=== PATIENT | female | born 1985 | race Caucasian/White ===

== ENCOUNTER 2016-07-20 13:18 | Emergency (ER) | payer BC, MEDICAID ==
[2016-07-20 13:19] VITALS: BMI 22.4
[2016-07-20 13:31] VITALS: RESP 20; TEMP 98.2
[2016-07-20] MEDS ORDERED: Sodium Chloride 0.9% 1,000 ML IV ONE (14:29)
[2016-07-20] MEDS ORDERED: Aluminum Hydroxide/Magnesium Hydroxide Susp (30 mL) PO STA (14:31)
[2016-07-20 14:47] LABS: RBC URINE < 1 /hpf (0-3); URINE BILIRUBIN NEGATIVE (NEGATIVE); URINE BLOOD 1+ (NEGATIVE); URINE COLOR Straw (YELLOW); URINE GLUCOSE (UA) NORMAL (Normal); URINE KETONE NEGATIVE (NEGATIVE); URINE LEUKOCYTE ESTERASE NEG Leu/uL (Negative); URINE PROTEIN NEGATIVE (NEGATIVE); URINE UROBILINOGEN NORMAL mg/dL (0.2-1.0)
[2016-07-20] MEDS ORDERED: Aluminum Hydroxide/Magnesium Hydroxide Susp (30 mL) ONE (14:49)
[2016-07-20 14:51] LABS: BASO % 0.1 % (0.0-2.0); HEMATOCRIT 39.2 % (34.0-47.0); LYMPH # 0.2 K/uL (1.0-4.3); MEAN CORPUSCULAR HEMOGLOBIN 25.2 pg (27.0-31.0); MEAN CORPUSCULAR HGB CONC 31.9 g/dL (33.0-37.0); MEAN PLATELET VOLUME 8.9 fL (7.2-11.7); MONO # 0.1 K/uL (0.0-0.8); MONO % 1.6 % (0.0-10.0); PLATELET COUNT 317 K/uL (130-400); RED CELL DISTRIBUTION WIDTH 15.7 % (11.5-14.5); WHITE BLOOD COUNT 5.5 K/uL (4.8-10.8)
[2016-07-20 14:53] LABS: CHLORIDE 105 mmol/L (98-107); POTASSIUM 3.4 mmol/L (3.6-5.2); SODIUM 141 mmol/L (132-148)
[2016-07-20 14:55] LABS: BILIRUBIN,TOTAL 0.4 mg/dL (0.2-1.3); GFR AFRICAN-AMERICAN > 60
[2016-07-20 14:56] LABS: ALB/GLOB RATIO 1.2 (1.0-2.1); ALKALINE PHOSPHATASE 93 U/L (38-126); ALT/SGPT 23 U/L (9-52); AST/SGOT 24 U/L (14-36); BLOOD UREA NITROGEN 7 mg/dL (7-17); CARBON DIOXIDE 20 mmol/L (22-30); GLUCOSE,RANDOM 135 mg/dL (65-105); TOTAL PROTEIN 8.3 g/dL (6.3-8.3)
[2016-07-20 14:57] LABS: CALCIUM 9.2 mg/dl (8.6-10.4)
[2016-07-20 15:14] LABS: NEUTROPHIL 94 % (50-75); TOTAL CELLS COUNTED 100
--- NOTE | 2016-07-20 15:20 | C.PDOC ---
History Of Present Illness 31 y/o female presents to the ED with complains of difficulty swallowing her saliva since last night. Pt has no difficulty swallowing food or water but has hard time swallowing saliva which is worse when lying down. Pt states went to [facility] this morning, was given shot solumedrol and discharged with ampicillin, symptoms did not improve. Pt reports similar episode in the past which resolved after given shot steroids. PMHx GERD, on protonix, symptoms worse past 2-3 weeks. Pt denies cough, SOB, chest pain, fever, vomiting or any other complaints. Time Seen by Provider: 07/20/16 14:04 Chief Complaint (Nursing): Palpitations History Per: Patient History/Exam Limitations: no limitations Onset/Duration Of Symptoms: Hrs Current Symptoms Are (Timing): Still Present Severity: Mild Recent travel outside of the [place]: No Past Medical History Reviewed: Historical Data, Nursing Documentation, Vital Signs Vital Signs: Last Vital Signs Temp 98.2 F 07/20/16 13:20 Pulse 102 H 07/20/16 16:17 Resp 20 07/20/16 16:17 BP 124/78 07/20/16 16:17 Pulse Ox 98 07/20/16 16:17 - Medical History PMH: Anemia, Gastritis Surgical History: No Surg Hx Family History: States: Unknown Family Hx - Social History Hx Tobacco Use: No Hx Alcohol Use: No Hx Substance Use: No Review Of Systems Constitutional: Negative for: Fever ENT: Positive for: Other (difficulty swallowing saliva). Negative for: Throat Pain Cardiovascular: Negative for: Chest Pain Respiratory: Negative for: Cough, Shortness of Breath Gastrointestinal: Negative for: Vomiting Physical Exam - Physical Exam Appears: Non-toxic, No Acute Distress Skin: Warm, Dry, No Rash Head: Atraumatic, Normacephalic Oral Mucosa: Moist Throat: Normal, No Erythema, No Exudate, No Drooling Neck: Normal ROM, Supple, Other (no masses / swelling) Chest: Symmetrical Cardiovascular: Rhythm Regular, No Murmur Respiratory: Normal Breath Sounds, No Rales, No Rhonchi, No Wheezing Gastrointestinal/Abdominal: Normal Exam, Soft, No Tenderness Extremity: Bilateral: Atraumatic Neurological/Psych: Oriented x3, Normal Speech, Normal Cognition ED Course And Treatment - Laboratory Results Result Diagrams: 07/20/16 14:39 07/20/16 14:39 O2 Sat by Pulse Oximetry: 97 (on room air) Pulse Ox Interpretation: Normal Medical Decision Making Medical Decision Making: Plan: * EKG * labs * UA * Maalox, pepcid Results unremarkable except TSH borderline low Pt had no airway difficulty or problem with secretion in the ED Able to drink liquids with out difficulty Cause of symptom unclear at this time. Pt' s hr down from arrival but still in the low 100's PO plan discussed with pt and SO Follow up pcp and gi next 1 - 2 days Continue PPI Disposition Counseled Patient/Family Regarding: Studies Performed, Diagnosis, Need For Followup - Disposition Referrals: [facility] [Provider Group] Disposition: HOME/ ROUTINE Disposition Time: 16:01 Condition: GOOD Additional Instructions: Continue protonics Follow up with [facility] 1 - 2 days Return to the ED for any mew or worsening symptoms Forms: General Discharge Instructions - Clinical Impression Clinical Impression: Dysphagia - Scribe Statement The provider has reviewed the documentation as recorded by the Abelino Li Provider Attestation: All medical record entries made by the Abelino were at my direction and personally dictated by me. I have reviewed the chart and agree that the record accurately reflects my personal performance of the history, physical exam, medical decision making, and the department course for this patient. I have also personally directed, reviewed, and agree with the discharge instructions and disposition.
[2016-07-20 15:36] LABS: THYROID STIMULATING HORMONE 0.45 mIU/L (0.46-4.68)
[2016-07-20 16:18] VITALS: BP 124/78; PULSE 102
--- NOTE | 2016-07-21 11:44 | CARD ---
APPROVED REPORT EKG Measurement Heart [id number] [place] [id number] <Conclusion> Sinus tachycardia Otherwise normal ECG
[2016-07-21 14:02] VITALS: O2SAT 97
== END 2016-07-20 16:17 | disposition home or self-care (01) ==
LOC: C.ER 13:18
DX: R13.10 Dysphagia, unspecified (principal)
CPT/HCPCS: 80053; 81001; 84443; 84703; 85025; 85378; 93005; 96374; 99285; J7040